=== PATIENT | male | born 1960 | race Caucasian/White ===

== ENCOUNTER 2021-12-27 12:12 | Emergency (ER) | payer OTHER ==
[2021-12-27] MEDS ORDERED: Sodium Chloride 0.9% 10 ML Syringe FLUSH PRN (12:21)
[2021-12-27 13:03] LABS: ANION GAP 15.3 mEq/L (7-13); CHLORIDE,CL 103 mmol/L (98-107); SODIUM,NA 139 mmol/L (136-145)
[2021-12-27] MEDS ORDERED: levETIRAcetam in NaCl (iso-os) 1,500 MG in Premix Bag 1 BAG IV ONE ×2 (13:13)
== END 2021-12-27 14:00 ==
LOC: DL.ED 12:12
DX: S09.90XA Unspecified injury of head, initial encounter (principal); R56.9 Unspecified convulsions; E78.00 Pure hypercholesterolemia, unspecified; N40.0 Benign prostatic hyperplasia without lower urinary tract symptoms; Z79.82 Long term (current) use of aspirin; Z79.01 Long term (current) use of anticoagulants
CPT/HCPCS: 36415; 70450; 72125; 80053; 80307; 82140; 82947; 83605; 83690; 83735; 84443; 84484; 85025; 85610; 86140; 93005; 96365; 99285-25; J1953